=== PATIENT | female | born 1995 | race Two or more races ===

== ENCOUNTER 2018-11-05 10:30 | Emergency (ER) | payer MEDICAID, OTHER ==
[~2018-11-05] VITALS: Ht 165.1 cm; Wt 79.4 kg
[2018-11-05 11:20] LABS: Basophils # (auto) 0 uL; Basophils % (auto) 0.2 % (0.0-2.0); Eosinophils # (auto) 0 uL; Eosinophils % (auto) 0.5 % (0.0-7.0); Hematocrit 43.6 % (36.0-46.0); Hemoglobin 14.8 g/dL (12.2-16.2); Lymphocytes # (auto) 2.5 uL; Lymphocytes % (auto) 28.1 % (10.0-50.0); Mean Corpuscular Hemoglobin 29.6 pg (28.0-32.0); Monocytes # (auto) 0.6 uL; Monocytes % (auto) 6.8 % (0.0-12.0); Neutrophils # (auto) 5.8 uL; Neutrophils % (auto) 64.4 % (37.0-80.0); Nucleated Red Blood Cells % 0.1 %; Platelet Count (auto) 333 10^3/uL (140-450); Red Cell Distribution Width 13.4 % (11.8-14.3)
[2018-11-05 11:45] LABS: Albumin 3.6 g/dL (3.4-5.0); Calcium 9.2 mg/dL (8.5-10.1); Potassium 3.9 mmol/L (3.5-5.1)
[2018-11-05 11:49] LABS: BUN/Creatinine Ratio 11.3; Bilirubin, Total 0.4 mg/dL (0.2-1.0); Total Protein 7.8 g/dL (6.4-8.2)
[2018-11-05 12:43] LABS: Urine Bacteria NONE SEEN /hpf (None Seen); Urine Blood 2+ /uL (Negative); Urine Mucus FEW (None Seen); Urine WBC 39 /hpf (0 - 5)
[2018-11-05 14:47] VITALS: BP 118/58
== END 2018-11-05 16:07 | disposition home or self-care (01) ==
LOC: ER 10:30
DX: O20.8 Other hemorrhage in early pregnancy (principal); O23.41 Unspecified infection of urinary tract in pregnancy, first trimester; Z3A.01 Less than 8 weeks gestation of pregnancy
CPT/HCPCS: 36415; 76801; 80053; 81001; 84702; 85025

== ENCOUNTER 2019-06-17 19:50 | Observation (INO) | payer MEDICAID | END 2019-06-17 20:45 | disposition home or self-care (01) | DRG 566 | LOC: LDRP 19:50 | PROVIDERS: ADMIT Specialist; ATTEND Specialist | DX: O62.9 Abnormality of forces of labor, unspecified (principal); Z3A.38 38 weeks gestation of pregnancy | CPT/HCPCS: 59025; 81002; G0378 ==